=== PATIENT | male | born 1985 | race Caucasian/White ===

== ENCOUNTER 2021-05-16 07:31 | Emergency (ER) | payer OTHER ==
[~2021-05-16] VITALS: Ht 190.5 cm; Wt 99.8 kg
[2021-05-16] MEDS ORDERED: FLEXERIL PO (08:06)
[2021-05-16] MEDS ORDERED: NAPROSYN500 MG PO (08:06)
[2021-05-16 08:16] VITALS: BP 132/77
== END 2021-05-16 08:23 | disposition home or self-care (01) ==
LOC: M.ERS 07:31
DX: M54.50 Low back pain, unspecified (principal)

== ENCOUNTER 2021-07-12 06:47 | Emergency (ER) | payer OTHER ==
[~2021-07-12] VITALS: Ht 190.5 cm; Wt 102.1 kg
[~2021-07-12 06:47] MED LIST: FLEXERIL PO; NAPROSYN500 MG PO
[2021-07-12 07:00] VITALS: BP 150/86
[2021-07-12] MEDS ORDERED: TESSALON PERLE100 MG PO (07:17)
== END 2021-07-12 07:36 | disposition home or self-care (01) ==
LOC: M.ERS 06:47
DX: J06.9 Acute upper respiratory infection, unspecified (principal); J40 Bronchitis, not specified as acute or chronic; F17.210 Nicotine dependence, cigarettes, uncomplicated; Z98.890 Other specified postprocedural states